=== PATIENT | male | born 1935 | race Caucasian/White ===

== ENCOUNTER 2017-11-13 08:49 | Emergency (ER) | payer MEDICARE ==
[~2017-11-13] VITALS: Ht 177.8 cm; Wt 77.1 kg
[2017-11-13 08:49] VITALS: BP_SYST 112
--- NOTE | 2017-11-13 08:59 | NUR ---
Patient to ER bed 7 to gown for evaluation. Side rails up. Report received from LELAND Peguero.
--- NOTE | 2017-11-13 09:02 | NUR ---
Pt was brought in by BLS complains of pulling out yee catheter at board and care. Staff called 911 to verify if catheter was still okay. No noted trauma. No other injuries/complaints per patient or noted.
--- NOTE | 2017-11-13 09:03 | NUR ---
ER Dr. Cardoza at bedside examining patient.
--- NOTE | 2017-11-13 10:21 | NUR ---
Pt resting comfortably in hospital bed. No acute distress, will continue to monitor.
--- NOTE | 2017-11-13 11:03 | NUR ---
Pt resting comfortably in hospital bed. No acute distrses. Will continue to monitor.
[2017-11-13] MEDS ORDERED: ISOS60TA4 PO (11:59)
[2017-11-13] MEDS ORDERED: LACT10SO66 PO (11:59)
[2017-11-13] MEDS ORDERED: DOCU250C71 PO (11:59)
[2017-11-13] MEDS ORDERED: OMEP10SU PO (11:59)
[2017-11-13] MEDS ORDERED: HYDR-4039 PO (11:59)
[2017-11-13] MEDS ORDERED: FURO-150 PO (11:59)
[2017-11-13] MEDS ORDERED: CARV6.2554 PO (11:59)
[2017-11-13] MEDS ORDERED: CALC0.253 (11:59)
[2017-11-13] MEDS ORDERED: INSU100V9 SUBCUT ×2 (11:59)
[2017-11-13] MEDS ORDERED: VENL75CA PO (11:59)
[2017-11-13] MEDS ORDERED: ASPI-859 PO (11:59)
[2017-11-13] MEDS ORDERED: LIP20 PO (11:59)
[2017-11-13] MEDS ORDERED: ACET325T53 PO (12:00)
[2017-11-13 12:18] LABS: BILIRUBIN,URINE NEGATIVE (NEGATIVE); BLOOD, URINE 3+ (NEGATIVE); CLARITY/URINE SL HAZY (CLEAR); COLOR,URINE YELLOW (YELLOW); GLUCOSE,URINE NEGATIVE (NEGATIVE); KETONES,URINE NEGATIVE (NEGATIVE); LEUKOCYTE ESTERASE ,URINE 2+ (NEGATIVE); NITRITE, URINE POSITIVE (NEGATIVE); PH,URINE 5.5 (5.0-8.0); PROTEIN URINE TRACE (NEGATIVE); UROBILINOGEN,URINE 0.2 (0.2-1.0)
--- NOTE | 2017-11-13 12:20 | NUR ---
urine was obtained, sent to lab. EKG was obtained as well and given to Dr. Cardoza.
[2017-11-13 12:26] LABS: BACTERIA,URINE MODERATE /HPF (None Seen); WBC,URINE 50-80 /HPF (0-3)
[2017-11-13 12:27] LABS: MUCUS,URINE None Seen /LPF (None Seen)
[2017-11-13] MEDS ORDERED: LEVOFLOXACIN 500 MG TABLET PO ONE (13:00)
--- NOTE | 2017-11-13 13:01 | NUR ---
Medication was given, pt tolerated well. No adverse reaction, will continue to monitor.
--- NOTE | 2017-11-13 14:03 | NUR ---
Dietary brought tray for patient. Pt sitting independently on wheelchair eating food.
--- NOTE | 2017-11-13 14:22 | NUR ---
Called for transportation, no response. broadcast maintenance technician calling other transportation companies.
--- NOTE | 2017-11-13 14:39 | NUR ---
FLOWER SHOP MANAGER NOTE: Pt referred to Senior Construction Manager by ER Director for transportation assistance. PRISON GUARD SUPERVISOR called pt's residence, [facility] ([phone]), and spoke with Priyank. Priyank states that due to pt's condition pt requires ambulance transportation. PRISON GUARD SUPERVISOR spoke with ER Nurse, Sudhir, and requested for ER staff to arrange ambulance transportation for pt. Senior Construction Manager will continue to remain available and follow up as needed.
--- NOTE | 2017-11-13 15:45 | NUR ---
Multiple attempts to get a ride for pt to return home. Per board n care representive, pt always goes by ambulance, not van. Pt has [employer] insurance and no ambulance will accept. Pt sitting in hallway, calm, no acute distress. Denies pain. Water given. Asked if he wanted to ly down on hospital bed, pt refused at this time.
--- NOTE | 2017-11-13 15:58 | NUR ---
Dr. Cardoza speaking with [employer] representive regarding transportation home or transfer to [facility].
--- NOTE | 2017-11-13 16:11 | NUR ---
Pt placed in hallway bed for comfort. Dr. Cardoza spoke with [facility], they will arrange an ambulance to take pt back to [facility]. Pt denies pain, no acute distress
--- NOTE | 2017-11-13 16:55 | NUR ---
Son, Ten, called inquiring about father. Unable to pick him up because he lives in [place]. Updated son, will continue to find transportation.
--- NOTE | 2017-11-13 17:33 | NUR ---
Pt sleeping in hospital bed, no acute distress. ETA of transportation [id number]. Called [facility], board and care, to notify facility of transportation.
[2017-11-13 17:50] VITALS: BP_SYST 101
--- NOTE | 2017-11-13 17:50 | NUR ---
Patient given written and verbal discharge instructions and verbalizes understanding. ER MD discussed with patient the results and treatment provided. Patient in stable condition. ID arm band removed. Rx of Levaquin given. Patient educated on pain management and to follow up with PMD. Pain Scale 0. Opportunity for questions provided and answered. Medication side effect fact sheet provided. [facility] transportation arrived to transfer patient back home to board and care.
== END 2017-11-13 17:50 | disposition home or self-care (01) ==
LOC: SED 08:49
DX: N39.0 Urinary tract infection, site not specified (principal); F17.210 Nicotine dependence, cigarettes, uncomplicated; R07.89 Other chest pain; Z79.899 Other long term (current) drug therapy
CPT/HCPCS: 81000-TC; 87086; 87186-TC; 93005; 99285

== ENCOUNTER 2018-02-24 22:23 | Emergency (ER) | payer MEDICARE ==
[~2018-02-24] VITALS: Ht 182.9 cm; Wt 75.3 kg
[2018-02-24 22:23] VITALS: BP_SYST 149
[~2018-02-24 22:23] MED LIST: ACET325T53 PO; ASPI-859 PO; CALC0.253; CARV6.2554 PO; DOCU250C71 PO; FURO-150 PO; HYDR-4039 PO; INSU100V9 SUBCUT; ISOS60TA4 PO; LACT10SO66 PO; LIP20 PO; OMEP10SU PO; VENL75CA PO
[2018-02-24 23:02] LABS: HEMATOCRIT 41.3 % (36-54); HEMOGLOBIN 13.6 g/dL (14.0-18.0); MEAN CORPUSCULAR HEMOGLOBIN 33 pg (27-31); MEAN CORPUSCULAR HGB CONC 33 % (32-36); MEAN CORPUSCULAR VOLUME 101 fL (79.0-98.0); PLATELET COUNT (AUTO) 163 K/uL (130-430); RED BLOOD CELL COUNT(AUTO) 4.09 MIL/uL (4.2-6.2); RED CELL DISTRIBUTION WIDTH 12.2 % (9.0-15.0)
[2018-02-24 23:10] LABS: WHITE BLOOD COUNT (AUTO) 1.6 K/uL (4.8-10.8)
[2018-02-24] MEDS ORDERED: LIP40 PO (23:11)
[2018-02-24] MEDS ORDERED: TAMS-11 PO (23:11)
[2018-02-24] MEDS ORDERED: POTA-118 PO (23:11)
[2018-02-24 23:15] LABS: ANION GAP 6 (5-15); CALCIUM 9.4 mg/dL (8.4-11.0); CHLORIDE 100 mmol/L (98-107); CREATININE 0.96 mg/dL (0.55-1.30); GLUCOSE 88 mg/dL (70-99); POTASSIUM 4.1 mmol/L (3.5-5.1); SODIUM SERUM 137 mmol/L (136-145); UREA NITROGEN, BLOOD 26 mg/dL (8-21)
[2018-02-24 23:19] LABS: INR 1.1 (0.80-1.20); PROTHROMBIN TIME 11.1 SECS (9.5-12.5)
[2018-02-24 23:21] LABS: ALANINE AMINOTRANSFERASE 50 U/L (12-78); ALBUMIN 3.9 g/dL (3.4-4.8); ASPARTATE AMINOTRANSFERASE 49 U/L (10-37); TOTAL BILIRUBIN 0.6 mg/dL (0.0-1.0)
[2018-02-24 23:29] LABS: BASOPHILS % (MANUAL) 0 % (0-2); EOSINOPHILS % (MANUAL) 6 % (0-7); LYMPHOCYTES % (MANUAL) 44 % (20-46); MONOCYTES % (MANUAL) 2 % (0-11)
[2018-02-24] MEDS ORDERED: LIDOCAINE VISCOUS 2%, 15 ML UDC MM ONE (23:45)
[2018-02-25 01:38] LABS: BILIRUBIN,URINE NEGATIVE (NEGATIVE); BLOOD, URINE 3+ (NEGATIVE); CLARITY/URINE CLOUDY (CLEAR); COLOR,URINE YELLOW (YELLOW); GLUCOSE,URINE NEGATIVE (NEGATIVE); KETONES,URINE NEGATIVE (NEGATIVE); LEUKOCYTE ESTERASE ,URINE 3+ (NEGATIVE); NITRITE, URINE POSITIVE (NEGATIVE); PROTEIN URINE TRACE (NEGATIVE); UROBILINOGEN,URINE 0.2 (0.2-1.0)
[2018-02-25 02:26] VITALS: BP_SYST 115
[2018-02-25 02:37] LABS: BACTERIA,URINE MANY /HPF (None Seen); RBC,URINE 20-50 /HPF (0-3); WBC,URINE 50-80 /HPF (0-3)
== END 2018-02-25 02:26 | disposition short-term general hospital (02) ==
LOC: SED 22:23
DX: R31.0 Gross hematuria (principal); D72.819 Decreased white blood cell count, unspecified; I11.0 Hypertensive heart disease with heart failure; I50.9 Heart failure, unspecified; K21.9 Gastro-esophageal reflux disease without esophagitis; F03.90 Unspecified dementia, unspecified severity, without behavioral disturbance, psychotic disturbance, mood disturbance, and anxiety; E78.5 Hyperlipidemia, unspecified; N40.0 Benign prostatic hyperplasia without lower urinary tract symptoms; M19.90 Unspecified osteoarthritis, unspecified site; Z95.1 Presence of aortocoronary bypass graft; Z95.0 Presence of cardiac pacemaker; Z88.5 Allergy status to narcotic agent
CPT/HCPCS: 36415; 51702; 80053; 81000; 82272; 83605; 85007; 85027; 85610; 87040; 87086; 87186; 89055; 93005; 99285; J2001